=== PATIENT | male | born 1965 | race Caucasian/White ===

== ENCOUNTER 2016-09-09 08:48 | Day surgery (SDC) | payer MEDICARE, BC ==
[~2016-09-09 08:48] MED LIST: Lactated Ringers 1,000 ML IV SCH; Lidocaine 1%/Sod Bicarbonate in NS 8.4% 1 ML Syringe PRN; Sodium Chloride 0.9% 1,000 ML IV SCH; Sodium Chloride 0.9% 10 ML Syringe FLUSH PRN
--- NOTE | 2016-09-09 08:56 | PCM.OPNOTE ---
- General Post-Op/Procedure Note Date of Surgery/Procedure: 09/09/16 Operative Procedure(s): Screening colonoscopy Pre Op Diagnosis: Need for screening due to upcoming kidney transplant; age related screening Post-Op Diagnosis: Ascending colon polyp, 2 inverted diverticulum in the ascending colon, internal hemorrhoids, grade 1 Anesthesia Technique: MAC Primary Surgeon: Beverley Robbins Anesthesia Provider: Lori Harden Pathology: Ascending colon polyp EBL in mLs: 1 Complications: None Condition: Good Free Text/Narrative:: FLUIDS: 800 mL crystalloid INDICATION FOR PROCEDURE: The patient is a 51-year-old man who was referred to me by SRAVAN Torres for evaluation for screening colonoscopy prior to kidney transplant, he is also due for age-related screening. Performing a screening colonoscopy and the associated risks of the procedure had been discussed with the patient. The patient found these risks acceptable and agreed to proceed. DESCRIPTION OF PROCEDURE: The patient was taken to the operating room and placed in left lateral decubitus position. After induction of adequate sedation , a digital rectal exam was performed which was unremarkable. A pediatric Olympus colonoscope was inserted into the rectum and guided under direct visualization to the appendiceal orifice and ileocecal valve. The scope was then slowly withdrawn through the colon. The quality of the prep was good. There was no evidence of angiodysplasias. A diminutive ascending colon polyp was noted. This was removed in its entirety using cold forceps. There were also 2 completely inverted diverticulum in the ascending colon. These appeared almost like tags. They were not polypoid in any way. The scope was withdrawn into the rectum and retroflexed. There was mild prominence of the patient's internal hemorrhoids. The scope was straightened, the colon was desufflated, and the scope was withdrawn. The patient was awakened from sedation and transferred to the recovery room in stable condition having tolerated the procedure well. POSTOPERATIVE PLAN: I discussed with the patient's my intraoperative findings and recommendations. He will be sent a letter regarding his pathology and when his next colonoscopy should be performed.
--- NOTE | 2016-09-09 09:15 | PCM.PREANE ---
Preanesthetic Assessment - Procedure Proposed Procedure: Screening colonoscopy for pre-transplantation evaluation - Anesthesia/Transfusion/Family Hx Anesthesia History: Prior Anesthesia Without Reaction Family History of Anesthesia Reaction: No Transfusion History: Prior Transfusion Without Reaction Intubation History: Unknown - Review of Systems General: No Symptoms Pulmonary: Cough (Occasional) Cardiovascular: Other (Anemia, hypotension) Gastrointestinal: Difficulty swallowing (Dysphagia), Nausea, Vomiting, Other ( GERD) Neurological: Dizziness, Numbness (Mostly in feet, sometimes in hands, chemo induced), Tingling, Other (L scapula sarcoma, treated with chemo) Other: Reports: None (CKD, chronic renal insuffciency, fanconi syndrome), Thyroid Problems (Hypothyroidism) - Physical Assessment NPO Status Date: 09/08/16 NPO Status Time: 22:30 Pulse: 68 O2 Sat by Pulse Oximetry: 98 Respiratory Rate: 16 Blood Pressure: 96/65 Temperature: 35.8 C Height: 1.83 m Weight: 83.915 kg ASA Class: 3 Mental Status: Alert & Oriented x3 Airway Class: Mallampati = 1 Dentition: Reports: Normal Dentition Thyro-Mental Finger Breadths: 3 Mouth Opening Finger Breadths: 3 ROM/Head Extension: Full Lungs: Clear to auscultation, Normal respiratory effort Cardiovascular: Regular Rate, Regular Rhythm, No Murmurs - Allergies Allergies/Adverse Reactions: Allergies Allergy/AdvReac Type Severity Reaction Status Date / Time No Known Allergies Allergy Verified 09/08/16 17:01 - Blood Blood Available: No Product(s) Available: None - Acknowledgements Anesthesia Type Planned: MAC Pt an Appropriate Candidate for the Planned Anesthesia: Yes Alternatives and Risks of Anesthesia Discussed w Pt/Guardian: Yes Pt/Guardian Understands and Agrees with Anesthesia Plan: Yes PreAnesthesia Questionnaire HEENT History: Reports: Impaired Vision, Other (See Below) Other HEENT History: wears glasses Cardiovascular History: Reports: None Respiratory History: Reports: None Gastrointestinal History: Reports: GERD, Other (See Below) Other Gastrointestinal History: nausea/vomiting, dysphagia Genitourinary History: Reports: Other (See Below) Other Genitourinary History: kidney failure, chronic renal insufficiency, Fanconi syndrome [employer] History: Reports: None Musculoskeletal History: Reports: Other (See Below) Other Musculoskeletal History: L scapula sarcoma Neurological History: Reports: Other (See Below) Other Neuro History: neck cyst excision Psychiatric History: Reports: Anxiety, Other (See Below) Other Psychiatric History: ETOH abuse, quit in 1991 Endocrine/Metabolic History: Reports: Other (See Below) Other Endocrine/Metabolic History: thyromegaly Hematologic History: Reports: Anemia Immunologic History: Reports: None Oncologic (Cancer) History: Reports: Other (See Below) Other Oncologic History: osteosarkoma Other Dermatologic History: neck cyst excision - Past Surgical History Head Surgeries/Procedures: Reports: None Musculoskeletal Surgical History: Reports: Other (See Below) Other Musculoskeletal Surgeries/Procedures:: left shoulder-removed is shoulder joint and shoulder blade - SUBSTANCE USE Smoking Status *Q: Former Smoker Tobacco Use Within Last Twelve Months: Cigarettes Second Hand Smoke Exposure: No Days Per Week of Alcohol Use: 0 Number of Drinks Per Day: 0 Total Drinks Per Week: 0 Recreational Drug Use History: No - HOME MEDS Home Medications: Home Meds Ascorbic Acid [Vitamin C] 500 mg PO DAILY 08/31/15 [History] Cholecalciferol (Vitamin D3) [Vitamin D3] 5,000 unit PO DAILY 09/08/16 [History] Levothyroxine 75 mcg PO DAILY 09/08/16 [History] Potassium Chloride 20 meq PO DAILY 09/08/16 [History] - CURRENT (IN HOUSE) MEDS Current Meds: Current Medications Sodium Chloride (Normal Saline) 1,000 mls @ 125 mls/hr IV ASDIRECTED MELISA Stop: 09/09/16 23:00 Lidocaine/Sodium Bicarbonate (Buffered Lidocaine 1% In Ns 8.4%) 0.25 ml .XX ONETIME PRN PRN Reason: Prior to IV Start Stop: 09/09/16 18:00 Sodium Chloride (Saline Flush) 10 ml FLUSH ASDIRECTED PRN PRN Reason: Keep Vein Open Stop: 09/09/16 18:00 Discontinued Medications Lactated Ringer's (Ringers, Lactated) 1,000 mls @ 125 mls/hr IV ASDIRECTED MELISA Stop: 09/09/16 23:00
[2016-09-09] MEDS ORDERED: Propofol 200 MG/20 ML SDV ONE ×2 (11:00→11:09)
--- NOTE | 2016-09-09 11:13 | PCM48HPAN ---
Post Anesthesia Note - EVALUATION WITHIN 48HRS OF ANESTHETIC Vital Signs in Normal Range: Yes Patient Participated in Evaluation: Yes Respiratory Function Stable: Yes Airway Patent: Yes Cardiovascular Function Stable: Yes Hydration Status Stable: Yes Pain Control Satisfactory: Yes Nausea and Vomiting Control Satisfactory: Yes Mental Status Recovered: Yes
[2016-09-09 12:02] VITALS: BP 118/67
== END 2016-09-09 11:55 | disposition home or self-care (01) ==
LOC: JD.SDS 08:48
PROVIDERS: ATTEND Surgery
DX: Z12.11 Encounter for screening for malignant neoplasm of colon (principal); K57.30 Diverticulosis of large intestine without perforation or abscess without bleeding; K64.8 Other hemorrhoids; N18.4 Chronic kidney disease, stage 4 (severe); Z98.890 Other specified postprocedural states; Z79.899 Other long term (current) drug therapy; Z87.891 Personal history of nicotine dependence
CPT/HCPCS: 36415; 45380; 80048; 88305; J7040; J2704